=== PATIENT | male | born 1995 | race Caucasian/White ===

== ENCOUNTER 2024-05-17 23:14 | Emergency (ER) | payer SELFPAY ==
[~2024-05-17] VITALS: Ht 180.3 cm; Wt 136.1 kg
[2024-05-17 23:35] VITALS: BP 157/98; PULSE 84; RESP 18; TEMP 97.7; O2SAT 95
[2024-05-18] MEDS ORDERED: SOLU-MEDROL ONE (00:49)
[2024-05-18] MEDS ORDERED: WATER 20 ML ONE (00:49)
[2024-05-18] MEDS ORDERED: LIDOCAINE 1% VIAL ONE (00:51)
[2024-05-18] MEDS ORDERED: DUONEB 0.5-3(2.5) MG/3 ML IH ONE (00:51)
[2024-05-18] MEDS ORDERED: ROCEPHIN ONE (00:51)
[2024-05-18] MEDS ORDERED: DECADRON ONE (00:55)
[2024-05-18] MEDS: DUONEB 0.5-3(2.5) MG/3 ML IH STA (00:56)
[2024-05-18] MEDS: DECADRON IH STA (00:58)
[2024-05-18 00:59] VITALS: PULSE 68; RESP 20; O2SAT 95
[2024-05-18] MEDS: ROCEPHIN IM STA (01:05)
[2024-05-18] MEDS: SOLU-MEDROL IM STA (01:05)
[2024-05-18 01:12] VITALS: PULSE 66; RESP 18; O2SAT 98
[2024-05-18 02:01] VITALS: BP 157/98; PULSE 84; RESP 18; TEMP 97.7; O2SAT 95
== END 2024-05-18 01:25 | disposition home or self-care (01) ==
LOC: ER 23:14
DX: J40 Bronchitis, not specified as acute or chronic (principal); Z20.822 Contact with and (suspected) exposure to COVID-19
CPT/HCPCS: 99284; 87426; 96372; 94640; J1100; J2001; J0696; J2919; A4216; J2930